=== PATIENT | female | born 1985 | race Caucasian/White ===

== ENCOUNTER 2016-08-27 14:48 | Outpatient (CLI) | payer BC | END 2016-08-27 15:20 | disposition home or self-care (01) | LOC: FBPOP 14:48 | PROVIDERS: ATTEND Obstetrics & Gynecology | DX: O99.89 Other specified diseases and conditions complicating pregnancy, childbirth and the puerperium (principal); R10.84 Generalized abdominal pain; Z3A.29 29 weeks gestation of pregnancy | CPT/HCPCS: 59025; 99213 ==

== ENCOUNTER 2016-10-01 17:39 | Outpatient (CLI) | payer BC ==
[2016-10-01 18:28] VITALS: BP 137/80; PULSE 94; RESP 16; TEMP 98
[2016-10-01] MEDS ORDERED: PENICILLIN G POTASSIUM 5,000,000 UNIT in DEXTROSE 5% IN WATER 100 ML IVPB STA ×2 (18:50)
--- NOTE | 2016-10-01 18:55 | P.HPOB ---
History of Present Illness H&P Date: 10/01/16 Chief Complaint: Rupture of membranes at 34-2/7 weeks' This is a 30-year-old 1 para 0 woman with an estimated due date of 11/10 based on LMP consistent with 19 week ultrasound. She presents with spontaneous rupture of membranes at approximately 2 PM area she notes for clear fluid and denies vaginal bleeding. She denies abdominal pain or contractions. She has had an uncomplicated up until this time with no concerns for labor or other complications. She is feeling good movement. Following on admission to labor and delivery triage she was evaluated and rupture of membranes was confirmed by the amnio sure test. Her cervix was checked by the nurse and was closed, posterior and thick. On the monitor she is not having active contraction activity. status is reassuring by external monitoring. laboratory data shows blood type O+, antibody screen negative, rubella immune, VDRL nonreactive, hepatitis B surface antigen negative, HIV negative, glucose tolerance testing within normal limits. Group B strep cultures have not been taken. Review of Systems Constitutional: Denies chills, Denies fever Cardiovascular: Denies chest pain, Denies lightheadedness, Denies rapid heart beat, Denies shortness of breath Respiratory: Denies cough, Denies pain on inspiration Gastrointestinal: Denies BRBPR, Denies diarrhea, Denies nausea, Denies vomiting Genitourinary: Reports abnormal vaginal bleeding, Reports vaginal discharge Musculoskeletal: Reports low back pain Neurological: Denies headaches, Denies visual changes Psychiatric: Denies anxiety, Denies depression Past Medical History Past Medical History: No Reported History History of Any Multi-Drug Resistant Organisms: None Reported Past Surgical History: No Surgical Hx Reported Past Anesthesia/Blood Transfusion Reactions: No Reported Reaction Past Psychological History: No Psychological Hx Reported Smoking Status: Never smoker Past Alcohol Use History: None Reported Past Drug Use History: None Reported Medications and Allergies Home Medications Medication Instructions Recorded Confirmed Type Pnv with Ca,No.72/Iron/FA 1 each PO DAILY 08/27/16 10/01/16 History [ Plus Tablet] Allergies Allergy/AdvReac Type Severity Reaction Status Date / Time No Known Allergies Allergy Verified 10/01/16 17:52 Exam - Vital Signs Vital signs: Vital Signs Temp Pulse Resp BP 10/01/16 17:58 98 F 94 16 137/80 Intake and Output 10/01/16 10/01/16 10/01/16 06:59 14:59 22:59 Other: Weight 74.843 kg Patient Weight 10/02/16 06:59 Weight 74.843 kg This is a comfortable appearing, visibly gravid female. HEENT exam is negative for palpable lymphadenopathy or thyromegaly. The breathing is unlabored and her heart is a regular rate and rhythm. The abdomen is gravid and is soft. She has no flank pain, no rebound and no guarding. The skin is free of any obvious rash or lesions. She has no lower extremity edema erythema or pain. Rupture of membranes was confirmed. heart tones are reactive on external monitoring. She is not actively lenin. Assessment and Plan (1) 34 weeks gestation of Status: Acute (2) premature rupture of membranes (PPROM) delivered, current hospitalization Status: Acute Plan: This is a 31-year-old 1 para 0 woman with premature rupture of membranes at 34-2/7 weeks' gestation. No evidence of active labor. No evidence of chorioamnionitis. status is currently reassuring by external monitoring. Due to gestational age less than 36 weeks transfer is arranged. Patient and her family request transfer to [facility]. Transfer is accepted by a Dr. Montano. Risks and benefits of transfer are reviewed with the patient and her family members and consent is obtained. I do not believe that delivery is imminent. CBC is pending. Ultrasound for position pending. She'll be started on group B strep prophylactic antibiotics.
[2016-10-01 19:02] LABS: Basophils % (A) 0 %; CH 31.6; CHCM 33.9; Eosinophils # (A) 0.1 k/uL (0-0.7); Eosinophils % (A) 1 %; HCT 41.3 % (34.0-46.0); HDW 2.44; HGB 13.7 gm/dL (11.4-16.0); Luc # (Auto) 0.31; Luc % (Auto) 3; Lymphocytes # (A) 2.1 k/uL (1.0-4.8); Lymphocytes % (A) 18 %; MCH 31.1 pg (25.0-35.0); MCHC 33.1 g/dL (31.0-37.0); MCV 93.9 fL (80.0-100.0); Mean Platelet Volume 7.1; Monocytes # (A) 0.7 k/uL (0-1.0); Monocytes % (A) 6 %; Neutrophils # (A) 8.2 k/uL (1.3-7.7); Neutrophils % (A) 72 %; RDW 12.7 % (11.5-15.5); WBC 11.4 k/uL (3.8-10.6); WBC (Perox) 11.78
[2016-10-01] MEDS ORDERED: LACTATED RINGERS 1,000 ML IV SCH (19:15)
== END 2016-10-01 20:10 ==
LOC: FBPOP 17:39
PROVIDERS: ATTEND Obstetrics & Gynecology
DX: O42.913 Preterm premature rupture of membranes, unspecified as to length of time between rupture and onset of labor, third trimester (principal); Z3A.34 34 weeks gestation of pregnancy
CPT/HCPCS: 59025; 99214; 96361; 96365; 84112; 86900; 86901; 85025; 86850; J2540